=== PATIENT | female | born 1990 | race Caucasian/White ===

== ENCOUNTER 2022-12-21 07:05 | Inpatient (IN) | payer MEDICAID, SELFPAY ==
[2022-12-21] MEDS ORDERED: Metoclopramide HCl 10 MG/2 ML VIAL ONE ×2 (07:41→11:28)
[2022-12-21] MEDS ORDERED: diphenhydrAMINE 50 MG/ML VIAL ONE (07:41)
[2022-12-21 08:13] LABS: #Monocytes 0.6 10x3/uL (0.0-1.1); #Neutrophils 8.1 10x3/uL (1.5-8.4); %Basophils 0.4 % (0.0-2.0); %Eosinophils 0.2 % (0.0-6.0); %Lymphocytes 15.7 % (18.0-47.0); %Monocytes 5.7 % (0.0-10.0); %Neutrophils 77.5 % (40.0-75.0); Hematocrit 41.1 % (34.9-44.5); Hemoglobin 14.5 g/dL (12.0-15.5); Mean Corpuscular HGB CONC 35.3 g/dL (32.0-36.0); Mean Corpuscular Hemoglobin 31.3 pg (27.0-33.0); Mean Corpuscular Volume 88.8 fl (81.6-98.3); Mean Platelet Volume 10.6 fl (7.4-10.4); Platelet Count 261 10x3/uL (150-450); RBC Distribution Width 12.1 % (11.5-14.5); Red Blood Cell (RBC) Count 4.63 10x6/uL (3.90-5.03); White Blood Cell (WBC) Count 10.4 10x3/uL (3.5-10.5)
[2022-12-21 08:24] LABS: ALT (SGPT) 29 U/L (8-55); AST (SGOT) 31 U/L (5-34); Albumin 4.6 g/dL (3.5-5.0); Alkaline Phosphatase 54 U/L (40-110); Anion Gap 20 mmol/L (10-20); BUN (Urea Nitrogen) 10 mg/dL (7.0-18.7); Calc. Creatinine Clearance 0 mL/min (70-130); Calcium 9.5 mg/dL (7.8-10.44); Carbon Dioxide 17 mmol/L (22-29); Chloride 102 mmol/L (98-107); Estimated GFR 109; Globulin 3.2 g/dL (2.4-3.5); Glucose 137 mg/dL (70-105); Lipase 10 U/L (8-78); Magnesium 1.7 mg/dL (1.6-2.6); Potassium 3.7 mmol/L (3.5-5.1); Protein, Total 7.8 g/dL (6.0-8.3); Sodium 135 mmol/L (136-145)
[2022-12-21] MEDS ORDERED: Ondansetron PF 4 MG/2 ML Vial ONE (09:28)
[2022-12-21 09:46] LABS: Bilirubin Neg (Negative); Blood, Urine 25 (Negative); Clarity Slightly Cloudy (Clear); Glucose, Urine (Dipstick) Normal (Negative); Ketone, Urine 150 mg/dL (Negative); Leukocyte 25 (Negative); Nitrite Positive (Negative); Protein, Urine (Dipstick) 100 mg/dl (Neg-Trace); Specific Gravity, Urine 1.025 (1.005-1.030); Urobilinogen Normal mg/dL (Less than 2)
[2022-12-21 10:33] LABS: CAUTI Indications for Culture Alt mental st,lethar; RBC/HPF 0-3 HPF (0-3)
[2022-12-21 10:34] LABS: Bacteria/HPF 3+ HPF (None Seen); Mucous/LPF 3+ LPF (<2+); Trichomonas/HPF 1+ HPF (None Seen)
[2022-12-21 10:36] LABS: Urine Culture Reflex No No
[2022-12-21 10:49] LABS: SARS-CoV-2 NAA Rapid Test Not Detected (NotDetected)
[2022-12-21] MEDS ORDERED: Famotidine/PF 20 mg/2ml Vial ONE (11:51)
[2022-12-21] MEDS ORDERED: Prochlorperazine 10 MG/2 ML VIAL ONE (14:41)
[2022-12-21] MEDS ORDERED: Lactated Ringer's 1,000 ML IV SCH (15:45)
[2022-12-21] MEDS: Ondansetron PF 4 MG/2 ML Vial IVP PRN (15:51)
[2022-12-21 15:57] VITALS: BMI 20.2
[2022-12-21] MEDS ORDERED: Multivitamins, Adult 10 ML, Folic Acid 1 MG, Thiamine HCl 100 MG in Dextrose 5 %-0.45 %... IV SCH (17:00)
[2022-12-21] MEDS: Dextrose 5%-Lactated Ringers 1,000 ML IV SCH (17:33)
[2022-12-21] MEDS ORDERED: cefTRIAXone\\ROCEPHIN 1 GM in Sodium Chloride 0.9% 100 ML IVPB SCH (18:00)
[2022-12-21] MEDS: Famotidine/PF 20 mg/2ml Vial SLOW IVP SCH (21:00)
[2022-12-22] MEDS: Ondansetron PF 4 MG/2 ML Vial IVP PRN ×3 (00:48→16:58)
[2022-12-22 04:57] LABS: Chlam.trachomatis by PCR,Urine Not Detected (NotDetected); GC N.gonorrhoeae PCR,UrineVOID Not Detected (NotDetected)
[2022-12-22 05:39] LABS: Anion Gap 11 mmol/L (10-20); BUN (Urea Nitrogen) 5 mg/dL (7.0-18.7); Calc. Creatinine Clearance 102 mL/min (70-130); Calcium 7.7 mg/dL (7.8-10.44); Carbon Dioxide 18 mmol/L (22-29); Chloride 110 mmol/L (98-107); Estimated GFR 123; Glucose 116 mg/dL (70-105); Sodium 136 mmol/L (136-145)
[2022-12-22] MEDS: Dextrose 5%-Lactated Ringers 1,000 ML IV SCH ×2 (06:02→16:58)
[2022-12-22] MEDS ORDERED: Potassium Chloride 10 MEQ in Premix Bag 1 BAG IVPB SCH (08:00)
[2022-12-22] MEDS: Famotidine/PF 20 mg/2ml Vial SLOW IVP SCH ×2 (08:07→20:11)
[2022-12-22 12:17] LABS: Anion Gap 10 mmol/L (10-20); BUN (Urea Nitrogen) Less than 4 mg/dL (7.0-18.7); Calc. Creatinine Clearance 104 mL/min (70-130); Calcium 8.4 mg/dL (7.8-10.44); Carbon Dioxide 23 mmol/L (22-29); Chloride 109 mmol/L (98-107); Estimated GFR 123; Glucose 111 mg/dL (70-105); Potassium 3.5 mmol/L (3.5-5.1); Sodium 138 mmol/L (136-145)
[2022-12-22] MEDS: Metoclopramide HCl 10 MG/2 ML VIAL IVP SCH ×2 (14:38→20:30)
[2022-12-22] MEDS: cefTRIAXone\\ROCEPHIN 1 GM in Sodium Chloride 0.9% 100 ML IVPB SCH (17:43)
[2022-12-22] MEDS: Promethazine HCl 12.5 MG SUPP PR PRN (22:36)
[2022-12-23] MEDS: Ondansetron PF 4 MG/2 ML Vial IVP PRN ×2 (03:33→15:58)
[2022-12-23] MEDS: Metoclopramide HCl 10 MG/2 ML VIAL IVP SCH ×4 (03:39→20:38)
[2022-12-23] MEDS: Dextrose 5%-Lactated Ringers 1,000 ML IV SCH ×2 (06:36→21:31)
[2022-12-23] MEDS: Famotidine/PF 20 mg/2ml Vial SLOW IVP SCH ×2 (08:20→20:38)
[2022-12-23] MEDS: metroNIDAZOLE 500 MG TAB PO SCH ×2 (08:20→20:37)
[2022-12-23] MEDS: Promethazine HCl 12.5 MG SUPP PR PRN ×2 (09:50→19:36)
[2022-12-23] MEDS: cefTRIAXone\\ROCEPHIN 1 GM in Sodium Chloride 0.9% 100 ML IVPB SCH (17:19)
[2022-12-24] MEDS: Metoclopramide HCl 10 MG/2 ML VIAL IVP SCH ×2 (03:19→08:32)
[2022-12-24] MEDS: Famotidine/PF 20 mg/2ml Vial SLOW IVP SCH (08:32)
[2022-12-24] MEDS: metroNIDAZOLE 500 MG TAB PO SCH (12:06)
[2022-12-24 12:31] VITALS: BP 121/74; TEMP 99
== END 2022-12-24 13:51 | disposition home or self-care (01) | DRG 832 ==
LOC: CSHERS 07:05 → CSHTELE 15:11
PROVIDERS: ADMIT Obstetrics & Gynecology; ATTEND Obstetrics & Gynecology
DX: O21.1 Hyperemesis gravidarum with metabolic disturbance (principal); N39.0 Urinary tract infection, site not specified; O23.41 Unspecified infection of urinary tract in pregnancy, first trimester; O98.311 Other infections with a predominantly sexual mode of transmission complicating pregnancy, first trimester; A59.00 Urogenital trichomoniasis, unspecified; B96.89 Other specified bacterial agents as the cause of diseases classified elsewhere; Z20.822 Contact with and (suspected) exposure to COVID-19; Z3A.08 8 weeks gestation of pregnancy; Z88.2 Allergy status to sulfonamides; Z88.8 Allergy status to other drugs, medicaments and biological substances; Z87.891 Personal history of nicotine dependence; Z88.1 Allergy status to other antibiotic agents; B96.1 Klebsiella pneumoniae [K. pneumoniae] as the cause of diseases classified elsewhere
CPT/HCPCS: 36415; 76815; 80048; 80053; 81001; 83690; 83735; 84702; 85025; 87077; 87086; 87186; 87491; 87591; J0696; J0780; J1200; J2405; J2765; J3411; J3480; J3490; J7042; S0028

== ENCOUNTER 2023-01-30 07:33 | Emergency (ER) | payer MEDICAID ==
[2023-01-30] MEDS ORDERED: Morphine 4 MG/ML VIAL ONE (08:11)
[2023-01-30 08:22] LABS: #Monocytes 0.4 10x3/uL (0.0-1.1); #Neutrophils 6.3 10x3/uL (1.5-8.4); %Basophils 0.2 % (0.0-2.0); %Eosinophils 0.1 % (0.0-6.0); %Lymphocytes 18.7 % (18.0-47.0); %Monocytes 4.9 % (0.0-10.0); %Neutrophils 75.7 % (40.0-75.0); Hematocrit 26.6 % (34.9-44.5); Hemoglobin 9.6 g/dL (12.0-15.5); Mean Corpuscular HGB CONC 36.1 g/dL (32.0-36.0); Mean Corpuscular Hemoglobin 31.1 pg (27.0-33.0); Mean Corpuscular Volume 86.1 fl (81.6-98.3); Mean Platelet Volume 10.7 fl (7.4-10.4); Platelet Count 327 10x3/uL (150-450); RBC Distribution Width 11.9 % (11.5-14.5); Red Blood Cell (RBC) Count 3.09 10x6/uL (3.90-5.03); White Blood Cell (WBC) Count 8.4 10x3/uL (3.5-10.5)
[2023-01-30 08:49] LABS: ALT (SGPT) 17 U/L (8-55); AST (SGOT) 22 U/L (5-34); Albumin 4.5 g/dL (3.5-5.0); Alkaline Phosphatase 46 U/L (40-110); Anion Gap 18 mmol/L (10-20); BUN (Urea Nitrogen) 9 mg/dL (7.0-18.7); Bilirubin, Total 0.3 mg/dL (0.2-1.2); Calc. Creatinine Clearance 0 mL/min (70-130); Calcium 9.2 mg/dL (7.8-10.44); Carbon Dioxide 19 mmol/L (22-29); Chloride 100 mmol/L (98-107); Estimated GFR 109; Globulin 2.8 g/dL (2.4-3.5); Glucose 110 mg/dL (70-105); Lipase 14 U/L (8-78); Potassium 3.3 mmol/L (3.5-5.1); Protein, Total 7.3 g/dL (6.0-8.3); Sodium 134 mmol/L (136-145)
[2023-01-30] MEDS ORDERED: Promethazine HCl 12.5 MG in Sodium Chloride 0.9% 50 ML IVPB SCH (09:00)
[2023-01-30] MEDS ORDERED: Potassium Chloride 20 MEQ TAB ONE (09:29)
[2023-01-30 10:46] LABS: Bilirubin Neg (Negative); Blood, Urine 25 (Negative); Clarity Clear (Clear); Glucose, Urine (Dipstick) Normal (Negative); Ketone, Urine 50 mg/dL (Negative); Leukocyte Negative (Negative); Nitrite Negative (Negative); Protein, Urine (Dipstick) Negative (Neg-Trace); Urobilinogen Normal mg/dL (Less than 2)
[2023-01-30 11:08] LABS: Bacteria/HPF Rare-Few HPF (None Seen); CAUTI Indications for Culture Pelvic or flank pain; RBC/HPF None Seen HPF (0-3); Squamous Epithelial 0-3 HPF (0-3); Urine Culture Reflex No No; WBC/HPF 0-3 HPF (0-3)
[2023-01-30] MEDS ORDERED: Iopamidol 300 61% 100 ML VIAL FS ONE (14:22)
== END 2023-01-30 12:00 | disposition home or self-care (01) ==
LOC: CSHERS 07:33
DX: E86.0 Dehydration (principal); E87.6 Hypokalemia; R11.2 Nausea with vomiting, unspecified; R19.7 Diarrhea, unspecified; Z87.891 Personal history of nicotine dependence
CPT/HCPCS: 74177; 76856; 80053; 81001; 83690; 84702; 85025; 96374; 96375; J2270; J2550; Q9967